=== PATIENT | male | born 1990 | race American Indian/Alaskan Native ===

== ENCOUNTER 2019-10-26 12:54 | Emergency (ER) | payer SELFPAY ==
[2019-10-26 14:13] VITALS: BP 133/68
--- NOTE | 2019-10-26 14:13 | Emergency Department Report ---
Blank Doc - Documentation Documentation: 28-year-old male that presents wit abdominal pain with n/v. This initial assessment/diagnostic orders/clinical plan/treatment(s) is/are subject to change based on patient's health status, clinical progression and re- assessment by fellow clinical providers in the ED. Further treatment and workup at subsequent clinical providers discretion. Patient/guardians urged not to elope from the ED as their condition may be serious if not clinically assessed and managed. Initial orders include: 1- Patient sent to [facility] for further evaluation and treatment 2- labs 3- UA
[2019-10-26 14:59] LABS: Basophils # (Auto) 0.1 K/mm3 (0.0-0.1); Basophils % (Auto) 0.5 % (0.0-1.8); Eosinophils # (Auto) 0.4 K/mm3 (0.0-0.4); Eosinophils % (Auto) 3.4 % (0.0-4.3); Hematocrit 43.9 % (35.5-45.6); Hemoglobin 14.5 gm/dl (11.8-15.2); Lymphocytes % (Auto) 26.6 % (13.4-35.0); Mean Corpuscular HGB Conc 33 % (32-34); Mean Corpuscular Volume 92 fl (84-94); Monocytes # (Auto) 0.7 K/mm3 (0.0-0.8); Monocytes % (Auto) 6.2 % (0.0-7.3); Platelet Count 313 K/mm3 (140-440); Red Blood Count 4.76 M/mm3 (3.65-5.03); Red Cell Distribution Width 14.3 % (13.2-15.2)
[2019-10-26 15:21] LABS: Alanine Aminotransferase 25 units/L (7-56); Albumin 3.9 g/dL (3.9-5); BUN/Creatinine Ratio 9; Blood Urea Nitrogen 9 mg/dL (9-20); Calcium 8.7 mg/dL (8.4-10.2); Hemolysis Index 45
[2019-10-26 15:29] LABS: Bilirubin,Urine NEG (Negative); Blood,Urine NEG (Negative); Color,Urine Yellow (Yellow); Mucus,Urine FEW /HPF; Protein,Urine <15 mg/dL mg/dL (Negative); Urobilinogen,Urine < 2.0 mg/dL (<2.0); WBC,Urine < 1.0 /HPF (0.0-6.0)
--- NOTE | 2019-10-26 18:17 | Emergency Department Report ---
Vomiting/Diarrhea - HPI Chief Complaint: Nausea/Vomiting/Diarrhea Stated Complaint: STOMACH VIRUS Time Seen by Provider: 10/26/19 14:12 Duration: 2 Days Severity: mild Nausea/Vomiting Severity: Mild Diarrhea Severity: Mild Pain Severity: None Symptoms: Yes Watery Diarrhea, Yes Able to Tolerate Fluids, Yes Family w/ Dee lar Symptoms (brother), No Bloody diarrhea, No Fever, No Recent Unusual Foods, No Recent Untreated Water, No Recent use of Antibiotics, No Contacts w/ Similar Symptoms, No Rash, No Hematuria, No Recent URI Symptoms Other History: This is a 28-year-old healthy looking male here no acute distress who presents the ED complaining of nausea vomiting diarrhea started last night. Patient states he had about 3 episodes of vomiting and 3-4 episodes of diarrhea. He states them as nonbloody. Patient states he had a little bit of upper abdominal cramping otherwise no other symptoms. He denies fever/chills/chest pain/shortness of breath. Patient does note that his brother has the same symptoms this morning. 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 - Social History Smoking Status: Current Every Day Smoker Substance Use Type: None - Medications Home Medications: Home Medications Medication Instructions Recorded Confirmed Last Taken Type Aspirin [Aspirin BABY CHEW TAB] 81 mg PO QDAY 07/21/16 07/21/16 1 Day Ago History ~07/20/16 81 diphenhydrAMINE [Benadryl CAP] 50 mg PO QHS #30 capsule 07/24/16 Unknown Rx risperiDONE [RisperDAL] 1 mg PO QHS #30 tablet 07/24/16 Unknown Rx Dicyclomine [Bentyl] 20 mg PO BID #20 tablet 10/26/19 Unknown Rx Ondansetron [Zofran ODT TAB] 8 mg PO Q12HR #20 tab.rapdis 10/26/19 Unknown Rx Vomiting Diarrhea Exam - Exam General: Vital signs noted. No distress. Alert and acting appropriately. HEENT: Yes Moist Mucous Membranes, No Pharyngeal Erythema, No Pharyngeal Exudates, No Rhinorrhea, No Conjuctival Injection, No Frontal Tenderness, No Maxillary Tenderness Neck: No Adenopathy, No Rigidity Lungs: Yes Clear Lung Sounds, Yes Good Air Exchange, No Wheezes, No Stridor, No Cough, No Nasal Flaring, No Retractions, No Use of Accessory Muscles Heart exam: Regular: Yes, Murmur: No, Tachycardia: No Abdomen: Tenderness: No, Peritoneal Signs: No, Distention: No, Hyperactive Bowel sounds: No Skin exam: Rash: No, Edema: No, Normal turgor: Yes Neurologic: Alert and oriented, no deficits. Musculoskeletal: Unremarkable. ED Course Vital Signs 10/26/19 14:12 Temperature 98.6 F Pulse Rate 61 Respiratory 20 Rate Blood Pressure 133/68 O2 Sat by Pulse 99 Oximetry ED Medical Decision Making - Lab Data Result diagrams: 10/26/19 14:44 10/26/19 14:44 Laboratory Last Values WBC 11.4 K/mm3 (4.5-11.0) H 10/26/19 14:44 RBC 4.76 M/mm3 (3.65-5.03) 10/26/19 14:44 Hgb 14.5 gm/dl (11.8-15.2) 10/26/19 14:44 Hct 43.9 % (35.5-45.6) 10/26/19 14:44 MCV 92 fl (84-94) 10/26/19 14:44 MCH 30 pg (28-32) 10/26/19 14:44 MCHC 33 % (32-34) 10/26/19 14:44 RDW 14.3 % (13.2-15.2) 10/26/19 14:44 Plt Count 313 K/mm3 (140-440) 10/26/19 14:44 Lymph % (Auto) 26.6 % (13.4-35.0) 10/26/19 14:44 Nolan % (Auto) 6.2 % (0.0-7.3) 10/26/19 14:44 Eos % (Auto) 3.4 % (0.0-4.3) 10/26/19 14:44 Baso % (Auto) 0.5 % (0.0-1.8) 10/26/19 14:44 Lymph # 3.0 K/mm3 (1.2-5.4) 10/26/19 14:44 Nolan # 0.7 K/mm3 (0.0-0.8) 10/26/19 14:44 Eos # 0.4 K/mm3 (0.0-0.4) 10/26/19 14:44 Baso # 0.1 K/mm3 (0.0-0.1) 10/26/19 14:44 Seg Neutrophils % 63.3 % (40.0-70.0) 10/26/19 14:44 Seg Neutrophils # 7.2 K/mm3 (1.8-7.7) 10/26/19 14:44 Sodium 137 mmol/L (137-145) 10/26/19 14:44 Potassium 4.2 mmol/L (3.6-5.0) 10/26/19 14:44 Chloride 102.7 mmol/L (98-107) 10/26/19 14:44 Carbon Dioxide 21 mmol/L (22-30) L 10/26/19 14:44 Anion Gap 18 mmol/L 10/26/19 14:44 BUN 9 mg/dL (9-20) 10/26/19 14:44 Creatinine 1.0 mg/dL (0.8-1.5) 10/26/19 14:44 Estimated GFR > 60 ml/min 10/26/19 14:44 BUN/Creatinine Ratio 9 % 10/26/19 14:44 Glucose 90 mg/dL (75-100) 10/26/19 14:44 Calcium 8.7 mg/dL (8.4-10.2) 10/26/19 14:44 Total Bilirubin < 0.20 mg/dL (0.1-1.2) 10/26/19 14:44 AST 27 units/L (5-40) 10/26/19 14:44 ALT 25 units/L (7-56) 10/26/19 14:44 Alkaline Phosphatase 58 units/L (35-129) 10/26/19 14:44 Total Protein 6.0 g/dL (6.3-8.2) L 10/26/19 14:44 Albumin 3.9 g/dL (3.9-5) 10/26/19 14:44 Albumin/Globulin Ratio 1.9 % 10/26/19 14:44 Lipase 14 units/L (13-60) 10/26/19 14:44 Urine Color Yellow (Yellow) 10/26/19 14:54 Urine Turbidity Clear (Clear) 10/26/19 14:54 Urine pH 6.0 (5.0-7.0) 10/26/19 14:54 Ur Specific [place] 1.015 (1.003-1.030) 10/26/19 14:54 Urine Protein <15 mg/dl mg/dL (Negative) 10/26/19 14:54 Urine Glucose (UA) Neg mg/dL (Negative) 10/26/19 14:54 Urine Ketones Neg mg/dL (Negative) 10/26/19 14:54 Urine Blood Neg (Negative) 10/26/19 14:54 Urine Nitrite Neg (Negative) 10/26/19 14:54 Urine Bilirubin Neg (Negative) 10/26/19 14:54 Urine Urobilinogen < 2.0 mg/dL (<2.0) 10/26/19 14:54 Ur Leukocyte Esterase Neg (Negative) 10/26/19 14:54 Urine WBC (Auto) < 1.0 /HPF (0.0-6.0) 10/26/19 14:54 Urine RBC (Auto) 10.0 /HPF (0.0-6.0) 10/26/19 14:54 Urine Mucus Few /HPF 10/26/19 14:54 - Medical Decision Making 28-year-old male who presents with gastroenteritis most likely secondary to food toxin. All labs are within normal limits. Patient is in no acute distress no vomiting during ED stay. Discussed with patient follow-up with primary care physician. Referrals given for owner/photographer. Vital signs are normal patient stable understands to follow-up. Critical care attestation.: If time is entered above; I have spent that time in minutes in the direct care of this critically ill patient, excluding procedure time. ED Disposition Clinical Impression: Gastroenteritis Disposition: DC-01 TO HOME OR SELFCARE Is pt being admited?: No Does the pt Need Aspirin: No Condition: Stable Instructions: Acute Nausea and Vomiting (ED) Additional Instructions: Make sure to follow up with the primary care physician as discussed. Take all your medications as you've been prescribed. If you have any worsening symptoms or develop new symptoms please return to ED immediately. Prescriptions: Dicyclomine [Bentyl] 20 mg PO BID #20 tablet Ondansetron [Zofran ODT TAB] 8 mg PO Q12HR #20 tab.rapdis Referrals: PRIMARY CARE, [Primary Care Provider] - 3-5 Days [facility] [Provider Group] - 3-5 Days Forms: Work/School Release Form(ED) Time of Disposition: 18:22
== END 2019-10-26 18:50 | disposition home or self-care (01) ==
LOC: ED 12:54
DX: K52.9 Noninfective gastroenteritis and colitis, unspecified (principal); F17.200 Nicotine dependence, unspecified, uncomplicated
CPT/HCPCS: 36415; 80053; 81001; 83690; 85025; 99283